=== PATIENT | male | born 1945 | race Caucasian/White ===

== ENCOUNTER 2016-11-19 07:24 | Inpatient (IN) | payer MEDICARE, BC ==
[2016-11-19] VITALS (19 sets, daily range): BP systolic 100–145; BP diastolic 34–95
[~2016-11-19] VITALS: Ht 188 cm; Wt 106.4 kg
[2016-11-19] MEDS ORDERED: FISH PO (08:32)
[2016-11-19] MEDS ORDERED: SILO8CAP PO (08:32)
[2016-11-19] MEDS ORDERED: NIAC1000 PO (08:32)
[2016-11-19] MEDS ORDERED: CHOL20004 PO (08:32)
[2016-11-19] MEDS ORDERED: CLOP75TA16 PO (08:32)
[2016-11-19] MEDS ORDERED: VALS1TAB6 PO (08:32)
[2016-11-19] MEDS ORDERED: ATOR20TA PO (08:32)
[2016-11-19] MEDS ORDERED: ASCO500C15 PO (08:32)
[2016-11-19] MEDS ORDERED: GLUC100017 PO (08:32)
[2016-11-19] MEDS ORDERED: CYAN10009 PO (08:32)
[2016-11-19] MEDS ORDERED: FLAX100025 PO (08:32)
[2016-11-19] MEDS ORDERED: LIDOCAINE HCL 1% 20ML VIAL (Pyxis) INJ ONE (09:58)
[2016-11-19] MEDS ORDERED: IODIXANOL 320MG/ML 100 ML BOTTLE IV ONE ×2 (09:58→10:38)
[2016-11-19] MEDS ORDERED: HEPARIN SODIUM 1,000 UNIT/1ML VIAL IV ONE ×2 (10:02→10:03)
[2016-11-19] MEDS ORDERED: MIDAZOLAM HCL 2 MG/2 ML VIAL ONE ×2 (10:08→10:19)
[2016-11-19] MEDS ORDERED: FENTANYL CITRATE/PF 50MCG/ML 2ML VIAL ONE (10:08)
[2016-11-19] MEDS ORDERED: HYDROMORPHONE HCL/PF 2MG/ML (OR) ONE (10:20)
[2016-11-19] MEDS ORDERED: IOVERSOL 240MG/ML 100ML BOTTLE IV ONE (10:38)
[2016-11-19] MEDS ORDERED: ATROPINE SULFATE 0.1MG/ML 10ML DISP.SYRIN ONE (10:45)
[2016-11-19] MEDS ORDERED: NITROGLYCERIN 50MCG/ML 10ML VIAL (CATH LAB) IV ONE (10:57)
[2016-11-19] MEDS ORDERED: NICARDIPINE 100MCG/ML 10ML VIAL (CATH LAB) IV ONE (10:57)
[2016-11-19] MEDS ORDERED: ASPIRIN 325MG TABLET ONE (10:57)
[2016-11-19] MEDS ORDERED: CLOPIDOGREL 75MG TABLET ONE (10:57)
[2016-11-19] MEDS ORDERED: HYDROCHLOROTHIAZIDE PO SCH (11:00)
[2016-11-19] MEDS ORDERED: ACETAMINOPHEN 325MG TABLET PO PRN (11:00)
[2016-11-19] MEDS ORDERED: ATROPINE SULFATE 1MG/10ML SYR IV PRN (11:00)
[2016-11-19] MEDS ORDERED: [UNRECOGNIZED DRUG - OTHER] PO SCH (11:00)
[2016-11-19] MEDS ORDERED: GLUCOSAMINE SULFATE 1000 MG PO SCH (11:00)
[2016-11-19] MEDS ORDERED: VALSARTAN PO SCH (11:00)
[2016-11-19] MEDS ORDERED: SODIUM CHLORIDE 0.45% 1,000 ML IV ONE (12:00)
[2016-11-19] MEDS: LOSARTAN POTASSIUM 100 MG TABLET PO SCH (12:20)
[2016-11-19] MEDS: HYDROCHLOROTHIAZIDE 25MG TABLET PO SCH (12:20)
[2016-11-19] MEDS: ATORVASTATIN CALCIUM 20MG TABLET PO SCH (12:21)
[2016-11-19] MEDS: CYANOCOBALAMIN 1000MCG TABLET PO SCH (12:21)
[2016-11-19] MEDS: FISH OIL/OMEGA-3 FATTY ACIDS 1000MG CAPSULE PO SCH (17:32)
[2016-11-19] MEDS ORDERED: TAMSULOSIN HCL 0.4MG SR CAPSULE PO SCH (21:00)
[2016-11-19] MEDS ORDERED: ZOLPIDEM TARTRATE 5MG TABLET PO PRN (21:00)
[2016-11-20] VITALS (7 sets, daily range): BP systolic 100–127; BP diastolic 62–78
[2016-11-20 07:17] LABS: BASOPHILS % 0.4 % (0.0-2.0); EOSINOPHILS % 1.6 % (0.0-5.0); HEMATOCRIT. 41.8 % (42.0-52.0); LYMPHOCYTES % 25.9 % (20.0-50.0); MEAN CORPUSCULAR VOLUME 83.9 fL (80.0-94.0); MEAN PLATELET VOLUME 7.8 fl (7.4-10.4); MONOCYTES % 9.1 % (2.0-8.0); PLATELET 211 x1000/uL (130-400); RED BLOOD CELL COUNT 4.98 mill/uL (4.7-6.1); RED CELL DISTRIBUTION WIDTH 13.7 % (11.6-14.6)
[2016-11-20] MEDS ORDERED: CLOPIDOGREL 75MG TABLET PO SCH (09:00)
[2016-11-20] MEDS ORDERED: ASPIRIN 81MG TABLET PO SCH (09:00)
[2016-11-20] MEDS ORDERED: SILODOSIN PO SCH (09:00)
[2016-11-20] MEDS: FISH OIL/OMEGA-3 FATTY ACIDS 1000MG CAPSULE PO SCH (09:21)
[2016-11-20] MEDS: ATORVASTATIN CALCIUM 20MG TABLET PO SCH (09:22)
[2016-11-20] MEDS: CYANOCOBALAMIN 1000MCG TABLET PO SCH (09:22)
[2016-11-20] MEDS: LOSARTAN POTASSIUM 100 MG TABLET PO SCH (09:22)
[2016-11-20] MEDS: HYDROCHLOROTHIAZIDE 25MG TABLET PO SCH (09:22)
== END 2016-11-20 10:20 | disposition home or self-care (01) | DRG 247 ==
LOC: CCL 07:24 → 3WST 07:25
PROVIDERS: ADMIT Specialist; ATTEND Specialist
PROC: 027034Z Dilation of Coronary Artery, One Artery with Drug-eluting Intraluminal Device, Percutaneous Approach (ICD-10-PCS; principal; 2016-11-19)
PROC: B2151ZZ Fluoroscopy of Left Heart using Low Osmolar Contrast (ICD-10-PCS; 2016-11-19)
PROC: 4A023N7 Measurement of Cardiac Sampling and Pressure, Left Heart, Percutaneous Approach (ICD-10-PCS; 2016-11-19)
PROC: B2111ZZ Fluoroscopy of Multiple Coronary Arteries using Low Osmolar Contrast (ICD-10-PCS; 2016-11-19)
DX: I25.10 Atherosclerotic heart disease of native coronary artery without angina pectoris (principal); I11.9 Hypertensive heart disease without heart failure; E78.5 Hyperlipidemia, unspecified; N40.0 Benign prostatic hyperplasia without lower urinary tract symptoms; Z79.82 Long term (current) use of aspirin
CPT/HCPCS: 36415; 80048; 85025; 85347; 92928; 93005; 93458; C1769; C1887; C1893; J0461; J1170; J1644; J2250; J3010; J3490; Q9967

== ENCOUNTER 2019-03-17 10:14 | Day surgery (SDC) | payer MEDICARE, BC ==
[~2019-03-17] VITALS: Ht 177.8 cm; Wt 100.0 kg
[~2019-03-17 10:14] MED LIST: ASCO500C15 PO; ATOR20TA PO; CHOL20004 PO; CLOP75TA4 PO; CYAN-50 PO; FISH PO; FLAX10003 PO; GLUC100017 PO; NIAC1000 PO; SILO8CAP2 PO; VALS1TAB6 PO
[2019-03-17] MEDS ORDERED: NICARDIPINE 100MCG/ML 10ML VIAL (CATH LAB) IV ONE (11:07)
[2019-03-17] MEDS ORDERED: NITROGLYCERIN 50MCG/ML 10ML VIAL (CATH LAB) IV ONE (11:07)
[2019-03-17] MEDS ORDERED: HEPARIN SODIUM 1,000 UNIT/1ML VIAL IV ONE (11:07)
[2019-03-17 12:37] LABS: CHLORIDE 104 mEq/L (98-107)
[2019-03-17 12:40] LABS: BASOPHILS % 0.7 % (0.0-2.0); EOSINOPHILS % 1.7 % (0.0-5.0); HEMATOCRIT. 46.5 % (42.0-52.0); HEMOGLOBIN. 15.3 g/dL (14.0-18.0); LYMPHOCYTES % 28.8 % (20.0-50.0); MEAN CORPUSCULAR HEMOGLOBIN 28.3 pg (28.0-32.0); MEAN CORPUSCULAR VOLUME 86.1 fL (80.0-94.0); MEAN PLATELET VOLUME 7.3 fl (7.4-10.4); MONOCYTES % 9.3 % (2.0-8.0); NEUTROPHILS % 59.5 % (40.0-76.0); PLATELET 235 x1000/uL (130-400); RED CELL DISTRIBUTION WIDTH 14.2 % (11.6-14.6)
[2019-03-17 12:44] LABS: LDL CHOLESTEROL 74 mg/dL (5-100)
[2019-03-17 12:46] LABS: HDL CHOLESTEROL 46 mg/dL (40-59)
[2019-03-17] MEDS ORDERED: SODIUM CHLORIDE 0.9% 1,000 ML IV ONE (13:00)
[2019-03-17 13:29] LABS: CLARITY URINE CLEAR (CLEAR); COLOR URINE YELLOW (YELLOW); KETONES URINE NEGATIVE (NEGATIVE); LEUKOCYTE ESTERASE URINE NEGATIVE (NEGATIVE); NITRITE URINE NEGATIVE (NEGATIVE); OCCULT BLOOD URINE NEGATIVE (NEGATIVE); PROTEIN URINE NEGATIVE (NEGATIVE); SPECIFIC GRAVITY URINE 1.014 (1.005-1.030); UROBILINOGEN URINE 0.2 E.U./dL (0.2-1.0)
[2019-03-17 13:42] LABS: *AMPHETAMINES SCREEN URINE NEGATIVE (NEGATIVE); *BARBITURATES SCREEN URINE NEGATIVE (NEGATIVE)
[2019-03-17 13:43] LABS: *BENZODIAZEPINES SCREEN URINE NEGATIVE (NEGATIVE); *COCAINE SCREEN URINE NEGATIVE (NEGATIVE); METHADONE URINE SCREEN NEGATIVE (NEGATIVE)
[2019-03-17 13:44] LABS: CANNABINOID URINE SCREEN NEGATIVE (NEGATIVE); OPIATES URINE SCREEN NEGATIVE (NEGATIVE); PHENCYCLIDINE URINE SCREEN NEGATIVE (NEGATIVE)
[2019-03-17 13:49] LABS: HEPATITIS B SURFACE ANTIGEN NEGATIVE
[2019-03-17 14:19] LABS: HEPATITIS A AB IGM NEGATIVE (NEGATIVE)
[2019-03-17 17:10] VITALS: BP 115/61
[2019-03-17] MEDS ORDERED: ACETAMINOPHEN 325MG TABLET PO PRN (18:15)
[2019-03-17] MEDS ORDERED: MORPHINE SULFATE 2 MG/ML CPJ (NOT FOR IM USE) IV PRN (18:15)
[2019-03-17] MEDS ORDERED: ONDANSETRON HCL 4MG/2ML INJ IV PRN (18:15)
[2019-03-17] MEDS ORDERED: ATROPINE SULFATE 1MG/10ML SYR IV PRN (18:15)
== END 2019-03-17 21:00 | disposition home or self-care (01) ==
LOC: ER 10:14 → EDBEDREQ 12:56 → EDBEDREQSVC 12:56 → OR 17:18 → ENRESERV 19:59 → OR 21:00 → CANBEDREQ 03-18 08:22
PROVIDERS: ATTEND Specialist
DX: R07.89 Other chest pain (principal); I25.110 Atherosclerotic heart disease of native coronary artery with unstable angina pectoris; I10 Essential (primary) hypertension; E78.5 Hyperlipidemia, unspecified; Z79.899 Other long term (current) drug therapy; Z87.891 Personal history of nicotine dependence; Z72.89 Other problems related to lifestyle
CPT/HCPCS: 36415; 71045; 80053; 80061; 80305; 81003; 82140; 82248; 83605; 83735; 83880; 84484; 85025; 85651; 87040; 87086; 93005; 93458; 99152; 99285; C1769; C1887; C1893; J1644; J3490; J7030; 80076; 86705; 86709; 86803; 87340; G0500